=== PATIENT | male | born 1975 ===

== ENCOUNTER 2024-04-14 02:05 | Outpatient (CLI) | payer MEDICAID, SELFPAY ==
--- NOTE | 2024-04-14 07:30 | DI.CT_ITS ---
Exam(s) CT NECK W EXAM: CT NECK W CLINICAL HISTORY: hoarseness,large left-side thyroid on exam,E04.9. TECHNIQUE: Imaging Protocol: Axial computed tomography images with coronal and sagittal reformatted images were created and reviewed CONTRAST MATERIAL: Intravenous: Omnipaque 350 Contrast volume:100 ml contrast COMPARISON: No exams were available for comparison FINDINGS: Exam is limited by streak artifact at the level of the clavicles. Parotids: Normal. Submandibular glands: Normal. Thyroid gland: Diffuse thyroid enlargement. The left lobe measures 9 cm in length. The right lobe m easures 7.7 cm in length by 2.5 by 4.2 cm. Large nodule lower pole of the left lobe measuring approx imately 5 by 6.5 x 6 cm. Heterogeneous appearance. It significantly deviates the trachea toward rig ht. It extends posterior to the parapharyngeal soft tissues. Lymph nodes: There are scattered lymph nodes seen along the level one to level three all measuring le ss than 8 mm in short axis diameter which are physiologic in nature. Carotids arteries: No significant stenosis or dissection. Vertebral arteries: No significant stenosis or dissection. Soft tissues: The floor the mouth is unremarkable. The tonsils and adenoids are unremarkable. The epiglottis and vocal cords are within normal limits. Lungs: Images through both lung apices are unremarkable. Bones: Apparent erosions at the superior endplate of T1. There is significant artifact at this level . Mild degenerative changes of the cervical spine. Visualized portions of the brain and orbits: Unremarkable. Sinuses and mastoids: Multifocal patchy sinus mucosal thickening of the ethmoid and maxillary sinuses . IMPRESSION: Diffusely enlarged thyroid with large nodule lower pole of the left lobe causing tracheal deviation. FNA recommended. Question of lucency at the superior endplate of T1. MRI could be performed for further evaluation. Unexpected findings RADIATION DOSE DELIVERED: Total DLP DATA REPOSITORY: All CT scans at this facility are submitted to the National Radiology Data Registry (NRDR) Dose Index Registry (DIR) with the [employer] ([employer]). RADIATION OPTIMIZATION: All CT scans at this facility use at least one of these dose optimization te chniques: automated exposure control; mA and/or kV adjustment per patient size (includes targeted exa ms where dose is matched to clinical indication); or iterative reconstruction.
[2024-04-14] MEDS: Omnipaque 350 MG/ML 100 ML BTL IJ (14:38)
[2024-04-14] MEDS: Normal Saline - Diluent 50 ML VIAL IJ (14:39)
== END 2024-04-14 02:25 ==
LOC: DI 02:05
PROVIDERS: PCP Internal Medicine; Visit Provider Registered Nurse Maternal Newborn
DX: E04.2 Nontoxic multinodular goiter (principal); R49.0 Dysphonia
CPT/HCPCS: 70491; J3490